=== PATIENT | male | born 1950 | race Caucasian/White ===

== ENCOUNTER 2018-11-17 08:01 | Day surgery (SDC) | payer BC, MEDICARE ==
[~2018-11-17 08:01] MED LIST: Midazolam 1 MG/ML 2 ML SDV ONE; Propofol 200 MG/20 ML SDV ONE; fentaNYL 100 MCG/2 ML SDV ONE
[2018-11-17] MEDS ORDERED: Lactated Ringers 1,000 ML IV SCH (08:30)
[2018-11-17 11:14] VITALS: BP 110/73
--- NOTE | 2018-11-17 17:43 | OR ---
DATE OF PROCEDURE: 11/17/2018 PREOPERATIVE DIAGNOSIS: History of adenomatous colon polyps. POSTOPERATIVE DIAGNOSES: 1. Diverticulosis. 2. A small colon polyp 20 cm from the anal verge. 3. History of adenomatous colon polyps. PROCEDURE PERFORMED: Colonoscopy to the cecum with biopsy resection of a small polyp 20 cm from the anal verge. SURGEON: Jas Martínez MD. ANESTHESIA: IV anesthesia with monitored anesthesia care. INDICATION: This 68-year-old white male is referred for a colonoscopy because of a history of adenomatous colon polyps. His last colonoscopic exam was done about 3 years ago. I counseled him for the procedure including risks and alternatives, and he gave his informed consent to proceed. DESCRIPTION OF PROCEDURE: The patient was placed in the left lateral decubitus position. IV anesthesia was administered by the Anesthesia Service. Time-out was held. A rectal exam was performed, which was unremarkable. The flexible video Olympus colonoscope was introduced through his anus, up his rectum and out his colon all the way to the cecum. En route, we saw a few scattered left-sided diverticula. There was no bleeding or inflammation associated with any of them. Once the cecum was reached, the scope was slowly withdrawn examining the mucosa throughout. No additional mucosal abnormalities noted until we reached 20 cm from the anal verge. Here, a small polyp was seen, which was removed with the biopsy forceps. The scope was brought back into the rectum, where it was retroflexed. The distal rectum appeared unremarkable. The scope was straightened and removed. He tolerated the procedure well. Jas Martínez MD /[id number]
== END 2018-11-17 11:42 | disposition home or self-care (01) ==
LOC: JP.SDS 08:01
PROVIDERS: ATTEND Surgery
DX: Z12.11 Encounter for screening for malignant neoplasm of colon (principal); K63.5 Polyp of colon; K57.30 Diverticulosis of large intestine without perforation or abscess without bleeding; Z86.010 Personal history of colon polyps
CPT/HCPCS: 45380; 88305; J2250; J2704; J3010; J7120

== ENCOUNTER 2020-02-26 07:34 | Emergency (ER) | payer MEDICARE ==
[2020-02-26 07:52] VITALS: BP 169/99; PULSE 106
--- NOTE | 2020-02-26 08:17 | EDM.PDOC ---
ED HPI GENERAL MEDICAL PROBLEM - General Chief Complaint: General Stated Complaint: CANNOT PASS HIS WATER Time Seen by Provider: 02/26/20 07:48 Source of Information: Reports: Patient, Family History Limitations: Reports: No Limitations - History of Present Illness INITIAL COMMENTS - FREE TEXT/NARRATIVE: 70-year-old male arrives with generalized lower abdominal discomfort, inte rmittent right lower quadrant discomfort and increased urinary frequency and urgency over the past week. Also some intermittent low back discomfort. No fevers or chills, some decreased appetite but no nausea or vomiting. Onset: Gradual Duration: Day(s): (7 days) Associated Symptoms: Reports: Loss of Appetite, Malaise. Denies: Confusion, Chest Pain, Cough, Fever/Chills, Headaches, Nausea/Vomiting, Shortness of Breath - Related Data Allergies Allergy/AdvReac Type Severity Reaction Status Date / Time No Known Allergies Allergy Verified 11/17/18 08:27 Home Meds: Home Meds Aspirin [Ecotrin EC] 81 mg PO DAILY 11/03/15 [History] Lisinopril [Prinivil] 40 mg PO DAILY 11/03/15 [History] allopurinoL [Zyloprim] 300 mg PO DAILY 11/03/15 [History] atorvaSTATin [Lipitor] 20 mg PO DAILY 11/03/15 [History] glipiZIDE [Glipizide Xl] 20 mg PO QAM 11/03/15 [History] metFORMIN HCl [Metformin HCl] 1,000 mg PO BID 11/03/15 [History] Loperamide [Imodium] 1 dose PO ASDIRECTED 11/15/18 [History] Metoprolol Succinate [Toprol XL 100mg] 100 mg PO DAILY 11/15/18 [History] Past Medical History HEENT History: Reports: Cataract, Impaired Vision, Other (See Below) Other HEENT History: histoplasmosis effecting left eye Cardiovascular History: Reports: High Cholesterol, Hypertension Gastrointestinal History: Reports: Chronic Diarrhea, Colon Polyp, GERD, Other (See Below) Other Gastrointestinal History: hernia Musculoskeletal History: Reports: Arthritis, Fracture, Osteoarthritis Endocrine/Metabolic History: Reports: Diabetes, Type II, Obesity/BMI 30+ Hematologic History: Reports: Other (See Below) Other Hematologic History: factor 5 - Infectious Disease History Infectious Disease History: Reports: Chicken Pox Other Infectious Disease History: Histoplasmosis - Past Surgical History HEENT Surgical History: Reports: Eye Surgery Cardiovascular Surgical History: Reports: None GI Surgical History: Reports: Appendectomy, Colonoscopy Endocrine Surgical History: Reports: None Musculoskeletal Surgical History: Reports: None Social & Family History - Tobacco Use Smoking Status *Q: Never Smoker - Caffeine Use Caffeine Use: Reports: Tea ED ROS GENERAL - Review of Systems Review Of Systems: See Below Constitutional: Reports: Malaise, Decreased Appetite. Denies: Fever, Chills HEENT: Reports: No Symptoms Respiratory: Denies: Shortness of Breath Cardiovascular: Denies: Chest Pain, Palpitations Endocrine: Denies: Fatigue GI/Abdominal: Reports: Abdominal Pain, Decreased Appetite. Denies: Constipation, Diarrhea : Reports: Frequency, Urgency Musculoskeletal: Reports: Back Pain Skin: Reports: No Symptoms Neurological: Denies: Dizziness, Headache, Weakness Psychiatric: Reports: No Symptoms ED EXAM, GENERAL - Physical Exam Exam: See Below Exam Limited By: No Limitations General Appearance: Alert, No Apparent Distress Head: Atraumatic Respiratory/Chest: No Respiratory Distress, Lungs Clear Cardiovascular: Regular Rate, Rhythm. No: Tachycardia, Extra Beats GI/Abdominal: Normal Bowel Sounds, Soft, Other (Patient has a large lower abdominal hernia which is chronic, it is nontender to palpation) Back Exam: No: CVA Tenderness (R), CVA Tenderness (L) Extremities: Other (Just a trace of symmetric edema at the ankles) Neurological: Alert, Oriented Psychiatric: Normal Affect, Normal Mood Skin Exam: Warm, Dry Course - Vital Signs Last Recorded V/S: Last Vital Signs Temp 98.6 F 02/26/20 07:55 Pulse 106 H 02/26/20 07:55 Resp 16 02/26/20 07:55 BP 169/99 H 02/26/20 07:55 Pulse Ox 99 02/26/20 07:55 - Orders/Labs/Meds Orders: Active Orders 24 hr Category Date Time Status CULTURE URINE [RM] Stat Lab 02/26/20 08:07 Received Labs: Laboratory Tests 02/26/20 02/26/20 Range/Units 08:07 08:13 POC Glucose 239 H (74-106) MG/DL Urine Color Yellow (YELLOW) Urine Appearance Cloudy A (CLEAR) Urine pH 5.5 (5.0-8.0) Ur Specific [place] >= 1.030 (1.008-1.030) Urine Protein >=300 H (NEGATIVE) mg/dL Urine Glucose (UA) 100 H (NEGATIVE) mg/dL Urine Ketones Negative (NEGATIVE) mg/dL Urine Occult Blood Moderate H (NEGATIVE) Urine Nitrite Positive H (NEGATIVE) Urine Bilirubin Negative (NEGATIVE) Urine Urobilinogen 0.2 (0.2-1.0) EU/dL Ur Leukocyte Esterase Small H (NEGATIVE) Urine RBC 50-75 H (0-5) Urine WBC 40-50 H (0-5) Ur Epithelial Cells Rare Amorphous Sediment Rare Urine Bacteria Moderate Urine Mucus Rare - Re-Assessments/Exams Free Text/Narrative Re-Assessment/Exam: 02/26/20 08:16 [id number] glucose was obtained as well as a UA. The urine sample looks cloudy. 02/26/20 08:31 Glucose was 239 02/26/20 08:31 Urine was markedly positive, nitrate positive with WBCs and bacteria. A urine culture was initiated and the patient will be put on Macrobid twice daily for 7 full days. He can return if worsening despite treatment, and we will contact him if the culture dictates change in medication. Departure - Departure Time of Disposition: 08:52 Disposition: Home, Self-Care 01 Clinical Impression: UTI (urinary tract infection) Qualifiers: Urinary tract infection type: acute cystitis Hematuria presence: with hematuria Qualified Code(s): N30.01 - Acute cystitis with hematuria - Discharge Information Instructions: Urinary Tract Infection, Adult, [id number] Referrals: Jaclyn Khan MD [Primary Care Provider] - Forms: ED Department Discharge Care Plan Goals: Take antibiotic twice daily until gone. Diet and activity as tolerated, and return anytime if worsening despite treatment. Also consider rechecking in 7 days if not improved satisfactorily at the end of the course of antibiotic. Sepsis Event Note (ED) - Evaluation Sepsis Screening Result: No Definite Risk - Focused Exam Vital Signs: Vital Signs Temp Pulse Resp BP Pulse Ox 02/26/20 07:55 98.6 F 106 H 16 169/99 H 99 02/26/20 07:51 98.6 F 106 H 16 169/99 H 99 - My Orders Last 24 Hours: My Active Orders 02/26/20 08:07 CULTURE URINE [RM] Stat - Assessment/Plan Last 24 Hours: My Active Orders 02/26/20 08:07 CULTURE URINE [RM] Stat
== END 2020-02-26 08:52 | disposition home or self-care (01) ==
LOC: JP.ED 07:34
DX: N30.01 Acute cystitis with hematuria (principal); E78.00 Pure hypercholesterolemia, unspecified; I10 Essential (primary) hypertension; K21.9 Gastro-esophageal reflux disease without esophagitis; M19.90 Unspecified osteoarthritis, unspecified site; E11.9 Type 2 diabetes mellitus without complications; E66.9 Obesity, unspecified; Z79.84 Long term (current) use of oral hypoglycemic drugs; Z68.37 Body mass index [BMI] 37.0-37.9, adult; Z79.82 Long term (current) use of aspirin; Z79.899 Other long term (current) drug therapy
CPT/HCPCS: 81001; 82962; 87086; 87088; 87186; 99283; 99284

== ENCOUNTER 2020-03-15 00:22 | Emergency (ER) | payer MEDICARE ==
[2020-03-15 00:40] VITALS: BP 198/114; PULSE 97
--- NOTE | 2020-03-15 02:46 | EDM.PDOC ---
ED HPI GENERAL MEDICAL PROBLEM - General Chief Complaint: Abdominal Pain Stated Complaint: R SIDE PAIN Time Seen by Provider: 03/15/20 01:00 Source of Information: Reports: Patient, Family History Limitations: Reports: No Limitations - History of Present Illness INITIAL COMMENTS - FREE TEXT/NARRATIVE: 70-year-old male who is been having right lower abdominal pain for the past s everal weeks, was diagnosed with a UTI 2 weeks ago and started on Macrobid. Urine culture revealed sensitive bacteria to Macrobid and he improved, however after a few days of being off the antibiotic he redeveloped symptoms and was seen in the clinic. Apparently he had another UTI, was put on ciprofloxacin and still has 3 days of antibiotic left. He thought he had improved but today he had pain again so came in to be checked. No fevers or chills, no dysuria, no nausea or vomiting. Onset: Unknown/Unsure Duration: Waxing/Waning (Waxing and waning over the past 3 to 4 weeks) Location: Reports: Abdomen Associated Symptoms: Reports: Malaise, Other (Intermittent dysuria or urinary frequency). Denies: Fever/Chills, Nausea/Vomiting, Shortness of Breath - Related Data Allergies Allergy/AdvReac Type Severity Reaction Status Date / Time No Known Allergies Allergy Verified 11/17/18 08:27 Home Meds: Home Meds Aspirin [Ecotrin EC] 81 mg PO DAILY 11/03/15 [History] Lisinopril [Prinivil] 40 mg PO DAILY 11/03/15 [History] allopurinoL [Zyloprim] 300 mg PO DAILY 11/03/15 [History] atorvaSTATin [Lipitor] 20 mg PO DAILY 11/03/15 [History] glipiZIDE [Glipizide Xl] 20 mg PO QAM 11/03/15 [History] metFORMIN HCl [Metformin HCl] 1,000 mg PO BID 11/03/15 [History] Loperamide [Imodium] 1 dose PO ASDIRECTED 11/15/18 [History] Metoprolol Succinate [Toprol XL 100mg] 100 mg PO DAILY 11/15/18 [History] Ciprofloxacin HCl [Cipro] 500 mg PO BID 03/15/20 [History] Past Medical History HEENT History: Reports: Cataract, Impaired Vision, Other (See Below) Other HEENT History: histoplasmosis effecting left eye Cardiovascular History: Reports: High Cholesterol, Hypertension Gastrointestinal History: Reports: Chronic Diarrhea, Colon Polyp, GERD, Other (See Below) Other Gastrointestinal History: hernia Musculoskeletal History: Reports: Arthritis, Fracture, Osteoarthritis Endocrine/Metabolic History: Reports: Diabetes, Type II, Obesity/BMI 30+ Hematologic History: Reports: Other (See Below) Other Hematologic History: factor 5 - Infectious Disease History Infectious Disease History: Reports: Chicken Pox Other Infectious Disease History: Histoplasmosis - Past Surgical History HEENT Surgical History: Reports: Eye Surgery Cardiovascular Surgical History: Reports: None GI Surgical History: Reports: Appendectomy, Colonoscopy Endocrine Surgical History: Reports: None Musculoskeletal Surgical History: Reports: None Social & Family History - Tobacco Use Smoking Status *Q: Never Smoker - Caffeine Use Caffeine Use: Reports: Tea ED ROS GENERAL - Review of Systems Review Of Systems: See Below Constitutional: Denies: Fever, Chills HEENT: Reports: No Symptoms Respiratory: Denies: Shortness of Breath Cardiovascular: Denies: Chest Pain GI/Abdominal: Reports: Abdominal Pain, Other (Patient is a very large abdominal wall hernia in the right lower abdomen, he is concerned that his pain may be related to the hernia) Skin: Reports: No Symptoms Neurological: Reports: No Symptoms ED EXAM, GI/ABD - Physical Exam Exam: See Below Exam Limited By: No Limitations General Appearance: Alert, No Apparent Distress Eyes: Bilateral: Normal Appearance (No jaundice) Head: Atraumatic Neck: Supple, Non-Tender Respiratory/Chest: Lungs Clear Cardiovascular: Regular Rate, Rhythm GI/Abdominal Exam: Normal Bowel Sounds, Soft, Other (Palpation of the large hernia really does not elicit any tenderness, guarding or rebound) Neurological: Alert, Oriented Psychiatric: Normal Affect, Normal Mood Skin Exam: Warm, Dry Course - Vital Signs Last Recorded V/S: Last Vital Signs Temp 96.8 F L 03/15/20 00:39 Pulse 97 03/15/20 00:39 Resp 16 03/15/20 00:39 BP 198/114 H 03/15/20 00:39 Pulse Ox 95 03/15/20 00:39 - Orders/Labs/Meds Labs: Laboratory Tests 03/15/20 Range/Units 02:05 Urine Color Yellow (YELLOW) Urine Appearance Cloudy A (CLEAR) Urine pH 5.0 (5.0-8.0) Ur Specific [place] 1.025 (1.008-1.030) Urine Protein 100 H (NEGATIVE) mg/dL Urine Glucose (UA) Negative (NEGATIVE) mg/dL Urine Ketones Trace H (NEGATIVE) mg/dL Urine Occult Blood Trace-lysed H (NEGATIVE) Urine Nitrite Negative (NEGATIVE) Urine Bilirubin Negative (NEGATIVE) Urine Urobilinogen 0.2 (0.2-1.0) EU/dL Ur Leukocyte Esterase Negative (NEGATIVE) Urine RBC 0-5 (0-5) Urine WBC 0-5 (0-5) Ur Epithelial Cells Rare Amorphous Sediment Many Urine Bacteria Rare Urine Mucus Few - Re-Assessments/Exams Free Text/Narrative Re-Assessment/Exam: 03/15/20 02:45 UA was obtained, it now is negative. CT of the abdomen and pelvis was obtained without contrast. 03/15/20 05:56 IMPRESSION: Moderate right hydronephrosis and hydroureter down to the level of the ureterovesical junction. No collecting system stone identified. Findings could be due to recently passed stone or pyelonephritis. Nonobstructive left nephrolithiasis. Large ventral hernia containing the vast majority of the small and large bowel. Colonic diverticulosis. Above findings discussed with the patient. He will finish his antibiotic and recheck next week. Departure - Departure Time of Disposition: 03:31 Disposition: Home, Self-Care 01 Clinical Impression: Renal colic on right side Hydronephrosis Qualifiers: Hydronephrosis type: unspecified Qualified Code(s): N13.30 - Unspecified hydronephrosis - Discharge Information Instructions: Hydronephrosis Referrals: Jaclyn Khan MD [Primary Care Provider] - Forms: ED Department Discharge Care Plan Goals: Finish antibiotics as prescribed, continue your other medications and increase activity as tolerated. Consider rechecking next week if not improving satisfactorily, you may need a urology consult if symptoms persist. Sepsis Event Note (ED) - Evaluation Sepsis Screening Result: No Definite Risk - Focused Exam Vital Signs: Vital Signs Temp Pulse Resp BP Pulse Ox 03/15/20 00:39 96.8 F L 97 16 198/114 H 95 03/15/20 00:37 96.8 F L 97 16 198/114 H 95
--- NOTE | 2020-03-15 03:13 | CRLCT ---
INDICATION: Right-sided abdominal pain TECHNIQUE: CT abdomen and pelvis without contrast. COMPARISON: None FINDINGS: Lower chest: Calcified granuloma left lower lobe. Liver: Unremarkable. Spleen: Unremarkable. Pancreas: Unremarkable. Gallbladder and bile ducts: Unremarkable. Adrenal glands: Unremarkable. Kidneys: Moderate right hydronephrosis and hydroureter down to the level the ureterovesical junction. No collecting system stone identified. There is fat stranding around right ureter and kidney. Simple cyst on the right kidney. 2 mm nonobstructive left renal stone. GI tract: There is a large ventral hernia which contains the vast majority of the small and large bowel. The entire hernia is not included on this exam. Visualized portions of the bowel demonstrates colonic diverticulosis. Vascular structures: Moderate atherosclerotic disease. Lymph nodes: Unremarkable. Miscellaneous: Unremarkable. No free air or significant free fluid. Pelvic Organs: Unremarkable. Bones: Unremarkable for age. IMPRESSION: Moderate right hydronephrosis and hydroureter down to the level of the ureterovesical junction. No collecting system stone identified. Findings could be due to recently passed stone or pyelonephritis. Nonobstructive left nephrolithiasis. Large ventral hernia containing the vast majority of the small and large bowel. Colonic diverticulosis. Please note that all CT scans at this facility use dose modulation, iterative reconstruction, and/or weight-based dosing when appropriate to reduce radiation dose to as low as reasonably achievable. Dictated by Jaclyn To MD @ Mar 15 2020 3:11AM Signed by Dr. Jaclyn To @ Mar 15 2020 3:11AM
== END 2020-03-15 03:31 | disposition home or self-care (01) ==
LOC: JP.ED 00:22
DX: N23 Unspecified renal colic (principal); N13.30 Unspecified hydronephrosis; K43.9 Ventral hernia without obstruction or gangrene; I10 Essential (primary) hypertension; E78.00 Pure hypercholesterolemia, unspecified; E11.9 Type 2 diabetes mellitus without complications; E66.9 Obesity, unspecified; Z79.84 Long term (current) use of oral hypoglycemic drugs; Z79.82 Long term (current) use of aspirin; Z79.899 Other long term (current) drug therapy; Z90.49 Acquired absence of other specified parts of digestive tract; Z68.36 Body mass index [BMI] 36.0-36.9, adult
CPT/HCPCS: 74176; 81001; 99284-25

== ENCOUNTER 2021-04-05 09:51 | Emergency (ER) | payer MEDICARE ==
[2021-04-05] MEDS ORDERED: methylPREDNISolone Sodium Succinate 125 MG/2 ML SDV IVPUSH ONE (10:16)
--- NOTE | 2021-04-05 10:19 | EDM.PDOC ---
ED HPI GENERAL MEDICAL PROBLEM - General Chief Complaint: Allergic Reaction Stated Complaint: VIA [facility] Time Seen by Provider: 04/05/21 10:09 Source of Information: Reports: Patient, EMS, RN Notes Reviewed History Limitations: Reports: No Limitations - History of Present Illness INITIAL COMMENTS - FREE TEXT/NARRATIVE: 71-year-old gentleman presents to the emergency department today via EMS services for evaluation of allergic reaction. He states it started last night developed some itching in his arms and then developed a rash on his upper part of his body this morning he woke up he had swollen lips and swollen tongue difficult for him to talk or swallow with no difficulty breathing. EMS services were called and treated him with Benadryl and epinephrine he states it did help his lips now have returned to normal his tongue is still partially swollen difficult for him to talk but it is significantly better. He does take lisinopril for blood pressure medication - Related Data Allergies Allergy/AdvReac Type Severity Reaction Status Date / Time No Known Allergies Allergy Verified 04/05/21 09:58 Home Meds: Home Meds Aspirin [Ecotrin EC] 81 mg PO DAILY 11/03/15 [History] Lisinopril [Prinivil] 40 mg PO DAILY 11/03/15 [History] allopurinoL [Zyloprim] 300 mg PO DAILY 11/03/15 [History] atorvaSTATin [Lipitor] 20 mg PO DAILY 11/03/15 [History] glipiZIDE [Glipizide Xl] 20 mg PO QAM 11/03/15 [History] metFORMIN HCl [Metformin HCl] 1,000 mg PO BID 11/03/15 [History] Loperamide [Imodium] 1 dose PO ASDIRECTED 11/15/18 [History] Metoprolol Succinate [Toprol XL 100mg] 100 mg PO DAILY 11/15/18 [History] Empagliflozin [Jardiance] 10 mg PO DAILY 04/05/21 [History] Tamsulosin [Tamsulosin 24 Hr] 0.4 mg PO DAILY 04/05/21 [History] Past Medical History HEENT History: Reports: Cataract, Impaired Vision, Other (See Below) Other HEENT History: histoplasmosis effecting left eye Cardiovascular History: Reports: High Cholesterol, Hypertension Gastrointestinal History: Reports: Chronic Diarrhea, Colon Polyp, GERD, Other (See Below) Other Gastrointestinal History: hernia Genitourinary History: Reports: BPH, Renal Calculus Musculoskeletal History: Reports: Arthritis, Fracture, Osteoarthritis Endocrine/Metabolic History: Reports: Diabetes, Type II, Obesity/BMI 30+ Hematologic History: Reports: Other (See Below) Other Hematologic History: factor 5 - Infectious Disease History Infectious Disease History: Reports: Chicken Pox Other Infectious Disease History: Histoplasmosis - Past Surgical History HEENT Surgical History: Reports: Eye Surgery Other HEENT Surgeries/Procedures: Laser treatment - right eye GI Surgical History: Reports: Appendectomy, Colonoscopy Social & Family History - Tobacco Use Tobacco Use Status *Q: Never Tobacco User - Caffeine Use Caffeine Use: Reports: Tea - Recreational Drug Use Recreational Drug Use: No ED ROS ALLERGIC REACTION - Review of Systems Review Of Systems: See Below Constitutional: Reports: No Symptoms HEENT: Reports: Throat Pain, Throat Swelling Respiratory: Reports: No Symptoms Cardiovascular: Reports: No Symptoms GI/Abdominal: Reports: No Symptoms Skin: Reports: Pruritis, Rash ED EXAM GENERAL NO PERIP PULSE - Physical Exam Exam: See Below Exam Limited By: No Limitations General Appearance: Alert, Mild Distress Throat/Mouth: Normal Lips, Normal Teeth, Normal Gums, No Airway Compromise, Inflammation (Over the tongue) Respiratory/Chest: No Respiratory Distress, Lungs Clear, Normal Breath Sounds, No Accessory Muscle Use, Chest Non-Tender Cardiovascular: Regular Rate, Rhythm, No Murmur Course - Vital Signs Last Recorded V/S: Last Vital Signs Temp 97.8 F 04/05/21 10:01 Pulse 99 04/05/21 13:33 Resp 18 04/05/21 10:01 BP 125/71 04/05/21 13:33 Pulse Ox 99 04/05/21 13:33 - Orders/Labs/Meds Orders: Active Orders 24 hr Category Date Time Status Dextrose 50% in Water Med 04/05/21 10:59 Active 50 ml IVPUSH ASDIRECTED PRN Glucagon,Human Recombinant [GlucaGen] Med 04/05/21 10:59 Active 1 mg IM ASDIRECTED PRN Medication Orders Dextrose/Water (50% Dextrose In Water 50 Ml Syringe) 50 ml IVPUSH ASDIRECTED PRN PRN Reason: Hypoglycemia Glucagon (Glucagon,Human Recombinant 1 Mg Vial) 1 mg IM ASDIRECTED PRN PRN Reason: Hypoglycemia Labs: Laboratory Tests 04/05/21 04/05/21 04/05/21 Range/Units 10:35 10:35 12:18 WBC 15.4 H (4.5-11.0) K/uL RBC 5.41 (4.30-5.90) M/uL Hgb 16.2 H D (12.0-15.0) g/dL Hct 47.8 (40.0-54.0) % MCV 88 (80-98) fL MCH 30 (27-31) pg MCHC 34 (32-36) % Plt Count 334 (150-400) K/uL Sodium 138 L (140-148) mmol/L Potassium 4.1 (3.6-5.2) mmol/L Chloride 101 (100-108) mmol/L Carbon Dioxide 18 L (21-32) mmol/L Anion Gap 23.1 H (5.0-14.0) mmol/L BUN 31 H D (7-18) mg/dL Creatinine 2.1 H D (0.8-1.3) mg/dL Est Cr Clr Drug Dosing 29.12 mL/min Estimated GFR (MDRD) 31 L (>60) Glucose 415 H* (74-106) mg/dL POC Glucose 414 H* (74-106) mg/dL Calcium 8.9 D (8.5-10.1) mg/dL 04/05/21 Range/Units 13:09 WBC (4.5-11.0) K/uL RBC (4.30-5.90) M/uL Hgb (12.0-15.0) g/dL Hct (40.0-54.0) % MCV (80-98) fL MCH (27-31) pg MCHC (32-36) % Plt Count (150-400) K/uL Sodium (140-148) mmol/L Potassium (3.6-5.2) mmol/L Chloride (100-108) mmol/L Carbon Dioxide (21-32) mmol/L Anion Gap (5.0-14.0) mmol/L BUN (7-18) mg/dL Creatinine (0.8-1.3) mg/dL Est Cr Clr Drug Dosing mL/min Estimated GFR (MDRD) (>60) Glucose (74-106) mg/dL POC Glucose 328 H (74-106) mg/dL Calcium (8.5-10.1) mg/dL Meds: Medications Generic Name Dose Route Start Last Admin Trade Name Freq PRN Reason Stop Dose Admin Dextrose/Water 50 ml 04/05/21 10:59 50% Dextrose In Water 50 Ml Syringe IVPUSH ASDIRECTED PRN Hypoglycemia Glucagon 1 mg 04/05/21 10:59 Glucagon,Human Recombinant 1 Mg Vial IM ASDIRECTED PRN Hypoglycemia Discontinued Medications Generic Name Dose Route Start Last Admin Trade Name Sandrine PRN Reason Stop Dose Admin Insulin Human Regular 10 unit 04/05/21 10:59 04/05/21 11:13 Insulin Regular, Human 100 Units/Ml 3 Ml Vial SUBCUT 04/05/21 11:00 10 units ONETIME ONE Administration Methylprednisolone Sodium Succinate 125 mg 04/05/21 10:16 04/05/21 10:20 Methylprednisolone Sodium Succinate 125 Mg/2 Ml Sdv IVPUSH 04/05/21 10:17 125 mg ONETIME ONE Administration Departure - Departure Time of Disposition: 14:35 Disposition: Home, Self-Care 01 Condition: Fair Clinical Impression: Allergic reaction Qualifiers: Encounter type: initial encounter Qualified Code(s): T78.40XA - Allergy, unspecified, initial encounter - Discharge Information Instructions: Allergies, Adult, Anaphylactic Reaction, Adult Referrals: PCP,None [Primary Care Provider] - Forms: ED Department Discharge Additional Instructions: Recommend stopping medication lisinopril and following up with your primary care in the next 1 to 2 days for reevaluation, please fill your prescription for the EpiPen use as needed call or return to the emergency department worsening of symptoms. Sepsis Event Note (ED) - Evaluation Sepsis Screening Result: No Definite Risk - Focused Exam Vital Signs: Vital Signs Temp Pulse Resp BP Pulse Ox 04/05/21 13:33 99 125/71 99 04/05/21 12:32 87 121/64 95 04/05/21 11:32 84 107/55 L 95 04/05/21 10:33 101 H 107/69 96 04/05/21 10:01 97.8 F 98 18 137/82 97 - My Orders Last 24 Hours: My Active Orders 04/05/21 10:59 Dextrose 50% in Water 50 ml IVPUSH ASDIRECTED PRN Glucagon,Human Recombinant [GlucaGen] 1 mg IM ASDIRECTED PRN - Assessment/Plan Last 24 Hours: My Active Orders 04/05/21 10:59 Dextrose 50% in Water 50 ml IVPUSH ASDIRECTED PRN Glucagon,Human Recombinant [GlucaGen] 1 mg IM ASDIRECTED PRN Plan: Assessment Acuity = acute Site and laterality = allergic reaction Etiology = unknown Manifestations = none Location of injury = Home Lab values = none Plan His reaction was more consistent with allergy type allergic type reaction however no etiology was noted he does take lisinopril he is can to stop this medication and follow-up with his primary care for further evaluation, I did write a prescription for EpiPen as well. This note was dictated using [employer] voice recognition software please call with any questions on syntax or grammar.
[2021-04-05] MEDS ORDERED: Glucagon,Human Recombinant 1 MG Vial IM PRN (10:59)
[2021-04-05] MEDS ORDERED: 50% Dextrose in Water 50 ML Syringe IVPUSH PRN (10:59)
[2021-04-05] MEDS ORDERED: Insulin Regular, Human 100 Units/ML 3 ML Vial SUBCUT ONE (10:59)
[2021-04-05 14:27] VITALS: BP 125/71; PULSE 99
== END 2021-04-05 15:32 | disposition home or self-care (01) ==
LOC: JP.ED 09:51
DX: T78.40XA Allergy, unspecified, initial encounter (principal); E78.00 Pure hypercholesterolemia, unspecified; I10 Essential (primary) hypertension; M19.90 Unspecified osteoarthritis, unspecified site; N40.0 Benign prostatic hyperplasia without lower urinary tract symptoms; E11.9 Type 2 diabetes mellitus without complications; E66.9 Obesity, unspecified; Z68.37 Body mass index [BMI] 37.0-37.9, adult; Z79.82 Long term (current) use of aspirin; Z79.899 Other long term (current) drug therapy; Z79.84 Long term (current) use of oral hypoglycemic drugs
CPT/HCPCS: 36415; 80048; 82947; 85027; 96374; 99284; J1815; J2930

== ENCOUNTER 2023-02-27 15:30 | Emergency (ER) | payer MEDICARE ==
[2023-02-27 16:36] LABS: HEMATOCRIT 34.8 % (38.4-49.7); HEMOGLOBIN 12.1 g/dL (12.9-16.9); MEAN CORPUSCULAR HEMOGLOBIN 30.9 pg (31.6-35.5); MEAN CORPUSCULAR HGB CONC 34.8 g/dL (31.6-35.5); RED BLOOD CELL COUNT 3.91 M/uL (4.14-5.76); WHITE BLOOD CELL COUNT,WBC 9.1 K/uL (3.2-11.0)
[2023-02-27 16:53] LABS: PROTHROMBIN TIME 9.7 sec (9.2-10.6)
[2023-02-27 16:58] LABS: A/G RATIO 1.1 (1.2-2.2); ALANINE AMINOTRANSFERASE,ALT 18 U/L (12-78); ALBUMIN 3.9 g/dL (3.4-5.0); ALKALINE PHOSPHATASE 102 U/L (46-116); ASPARTATE AMNIOTRANSFERASE,AST 17 U/L (15-37); BILIRUBIN TOTAL 0.6 mg/dL (0.2-1.0); BLOOD UREA NITROGEN,BUN 32 mg/dL (7-18); CALCIUM 9.2 mg/dL (8.5-10.1); CARBON DIOXIDE,CO2 24 mmol/L (21-32); CHLORIDE,CL 100 mmol/L (100-108); CREATININE 1.5 mg/dL (0.8-1.3); EST CRCL DRUG DOSING (CG) 39.58 mL/min; ESTIMATED GFR 49 mL/min (>60); GLUCOSE RANDOM 296 mg/dL (74-106); PROTEIN TOTAL,TP 7.4 g/dL (6.4-8.2); SODIUM,NA 135 mmol/L (140-148)
[2023-02-27 16:59] LABS: C-REACTIVE PROTEIN < 0.05 mg/dL (0.0-0.3)
[2023-02-27] MEDS ORDERED: Sodium Chloride 0.9% 10 ML SDV FLUSH ONE (17:59)
[2023-02-27] MEDS ORDERED: Iopamidol 612 MG/ML 100 ML Bottle IV PRN (17:59)
[2023-02-27] MEDS ORDERED: Sodium Chloride 0.9% 100 ML IV SCH (18:00)
[2023-02-27 20:17] VITALS: BP 122/83; PULSE 72
== END 2023-02-27 21:22 | disposition home or self-care (01) ==
LOC: JP.ED 15:30
DX: R19.7 Diarrhea, unspecified (principal); K21.9 Gastro-esophageal reflux disease without esophagitis; E78.00 Pure hypercholesterolemia, unspecified; I10 Essential (primary) hypertension; E66.9 Obesity, unspecified; E11.9 Type 2 diabetes mellitus without complications; Z68.37 Body mass index [BMI] 37.0-37.9, adult; Z79.84 Long term (current) use of oral hypoglycemic drugs; Z79.82 Long term (current) use of aspirin; Z79.899 Other long term (current) drug therapy
CPT/HCPCS: 36415; 74177; 80053; 85027; 85610; 86140; 99285; J3490; Q9967; 99284